=== PATIENT | male | born 1985 | race Caucasian/White ===

== ENCOUNTER → 2016-11-12 | Outpatient (CLI) | payer BC | END | disposition home or self-care (01) | LOC: LAB 15:49 | PROVIDERS: ATTEND Internal Medicine Gastroenterology | DX: R19.7 Diarrhea, unspecified (principal) | CPT/HCPCS: 87045; 87493; 87899 ==

== ENCOUNTER 2017-03-18 15:03 | Emergency (ER) | payer BC, OTHER ==
[~2017-03-18] VITALS: Ht 198.1 cm; Wt 127.0 kg
[2017-03-18 15:05] VITALS: BP 125/88
[2017-03-19 09:43] LABS: Hepatitis B Surface Antibody Positive
== END 2017-03-18 16:00 | disposition home or self-care (01) ==
LOC: ER 15:11
DX: H10.212 Acute toxic conjunctivitis, left eye (principal)
CPT/HCPCS: 36415; 86703; 86706; 86803; 87340